=== PATIENT | male | born 1960 | race Caucasian/White ===

== ENCOUNTER 2019-04-14 14:02 | Observation (INO) ==
[~2019-04-14 14:02] MED LIST: KETAMINE HCL 50 MG/ML ML IV PRN; MIDAZOLAM 2 MG/2 ML VIAL IV SCH; PROPOFOL 200 MG/20 ML VIAL IV SCH
[2019-04-14] MEDS ORDERED: oxyCODONE HCL 5 MG TABLET PO PRN (14:30)
[2019-04-14] MEDS: 0.9 % SODIUM CHLORIDE 1,000 ML IV SCH (18:06)
[2019-04-14] MEDS: HYDROmorphone 2 MG/ML VIAL IV PRN ×3 (18:21→23:27)
[2019-04-14 20:05] LABS: Basophils # (Auto) 0 K/mcL (0.0-0.3); Basophils % (Auto) 0.3 % (0.0-2.0); Eosinophils # (Auto) 0.1 K/mcL (0.0-0.7); Eosinophils % (Auto) 1.3 % (0.0-7.0); Granulocytes % (Auto) 78.8 % (38.0-78.0); Hemoglobin 9.5 g/dL (13.5-16.5); Lymphocytes # (Auto) 1.2 K/mcL (1.5-4.8); Lymphocytes % (Auto) 10.9 % (15.5-49.0); Mean Cell Volume 71.4 fL (80.0-100.0); Mean Corpuscular HGB Conc 31.8 g/dL (31.0-36.0); Mean Platelet Volume 10.3 fL (7.4-10.4); Monocytes % (Auto) 8.7 % (1.0-12.0); Platelet Count 285 K/mcL (140-440); Red Cell Distribution Width 24.9 % (11.5-14.5); WBC 11.1 K/mcL (4.5-11.0)
[2019-04-14] MEDS: VANCOMYCIN 1,000 MG in 0.9 % SODIUM CHLORIDE 250 ML IV SCH (20:27)
[2019-04-14 21:42] LABS: INR 1.3 (0.9-1.1); Prothrombin Time 16.1 sec (11.9-14.5)
[2019-04-14] MEDS: PROMETHAZINE 25 MG/ML VIAL IV PRN (23:28)
[2019-04-14] MEDS: PIPERACILLIN SODIUM/TAZOBACTAM 3.375 GM in DEXTROSE 5% IN WATER 50 ML IV SCH (23:31)
[2019-04-15] MEDS: 0.9 % SODIUM CHLORIDE 10 ML SYRINGE IV SCH ×6 (00:07→22:07)
[2019-04-15 01:18] LABS: ALT/SGPT 61 U/l (0-40); AST/SGOT 40 U/l (0-37); Alkaline Phosphatase 66 U/L (39-117); Bilirubin,Direct 0.7 mg/dL (0.0-0.3); Bilirubin,Total 1.4 mg/dL (0.0-1.0); Blood Urea Nitrogen 12 mg/dl (6-20); Calcium 8.7 mg/dl (8.6-10.4); Carbon Dioxide 23 mmol/L (22-30); Chloride 102 mmol/L (96-108); Globulin 3.1 gm/dL (2.2-3.7); Glomerular Filtration Rate 98; Glucose 75 mg/dL (70-105); Lactate Dehydrogenase 188 U/L (94-250); Phosphorous 3.6 mg/dL (2.7-4.5); Triglycerides 89 mg/dl (<150); Uric Acid 2.3 mg/dL (2.5-8.0)
[2019-04-15] MEDS: HYDROmorphone 2 MG/ML VIAL IV PRN ×9 (02:03→22:07)
[2019-04-15] MEDS: ONDANSETRON 4 MG/2 ML VIAL IV PRN ×2 (02:04→22:57)
[2019-04-15] MEDS: PIPERACILLIN SODIUM/TAZOBACTAM 3.375 GM in DEXTROSE 5% IN WATER 50 ML IV SCH ×4 (03:11→17:50)
[2019-04-15] MEDS: 0.9 % SODIUM CHLORIDE 1,000 ML IV SCH ×2 (06:08→17:45)
--- NOTE | 2019-04-15 08:19 | XRay Report ---
HISTORY: Infected left-sided epidermal laceration FINDINGS: The lungs are clear. The heart, mediastinum, lucila and pleura are normal. No chest wall lesion is seen. There is no gas in the soft tissues or foreign body. Mild arthritis is present in the midthoracic spine and lower neck. IMPRESSION: Normal chest. Interpreted and Authenticated by: Oscar Kowalski 04/15/19
[2019-04-15] MEDS ORDERED: SCOPOLAMINE 1 PATCH PATCH TOPICAL PRN (09:05)
[2019-04-15] MEDS ORDERED: IPRATROPIUM/ALBUTEROL 3 ML AMPUL.NEB NEB PRN ×2 (09:05→11:09)
[2019-04-15] MEDS: VANCOMYCIN 1,000 MG in 0.9 % SODIUM CHLORIDE 250 ML IV SCH ×2 (09:11→22:06)
--- NOTE | 2019-04-15 09:54 | EGD Procedure Note ---
EGD Procedure Notes - Procedure Information Patient information: Note initiated : 04/15/19 at 9:49 am Service Date: 04.14.2019 Patient: Orville Johnson 58 y/o M admitted on for EGD/ J-Tube Placement. Pre-op diagnosis general: Nausea, vomiting. Weight loss. Post-Op Diagnosis general: Gastroparesis. Procedure: Esophogogastroduodenoscopy (EGD, post enteroscopy, PEGJ placed) Procedure Narrative: The procedure, alternatives and risks were discussed with the patient and the patient's questions were answered. Patient was advised of the risk of perforation. With endoscopist-administered intravenous sedation, the Olympus video colonoscope was introduced into the esophagus. Eosinophilic esophagitis appeared improved. The esophagus, stomach, and PEG site were examined sequentially. A guidewire was placed through the PEG and PEG tube was removed. Then the PEG-J was introduced into the stomach over the guidewire. The tip of the PEG-J was grasped with a resolution clip and advanced to the jejunum distal to the ligament of Treitz. The J tube was clipped to the jejunum and the colonoscope was withdrawn. The balloon was inflated with 7cc of water and pulled to the stomach wall. PEG-J was secured with an external bolster. The patient tolerated the procedure well. Assessment: Gastroparesis. Gastric port to passive drainage. Tube feeds per J tube.
--- NOTE | 2019-04-15 10:05 | General Surgery Consult Note ---
History of Present Illness Patient information: Note initiated : 04/15/19 at 10:02 am Service Date, if different from initiated Date: [] Patient: Orville Johnson 58 y/o M admitted on for EGD/ J-Tube Placement. Chief Complaint: [] Reason for consult: other (chest wall abscess) Requesting physician: Carlitos Celis History of present illness: 58-year-old male with history of developing abscess of left pectoral region for at least one month. He states that it started as a small pimple and has become progressively enlarged and painful. He states that it started draining about 2 days ago. Patient underwent J-tube placement on yesterday and it was noted that the area was severely inflamed. The patient had difficulty moving his left upper extremity. He was admitted overnight and was started on Zosyn and vancomycin pending culture results. He is counseled for excisional debridement and drainage of the large abscess.. Review of Systems - Constitutional malaise, night sweats, weakness - Respiratory pain with cough, no cough, no dyspnea, no dyspnea on exertion - Gastrointestinal abdominal pain, bloating, cramping, dyspepsia, dysphagia, heartburn, nausea, vomiting - Genitourinary no dysuria, no urinary frequency, no urinary hesitancy, no urinary incontinence - Musculoskeletal arthralgias, myalgias, stiffness - Integumentary other (abscess left chest wall) - Neurological no confusion, no dizziness, no headache(s), no numbness, no tingling, no tremor(s) - Psychiatric anxiety, no depression - Hematologic/Lymphatic no easy bleeding, no easy bruising, no lymphadenopathy - Allergic/Immunologic no tongue swelling, no throat swelling, no uticaria, no wheezing, no lip swelling Past History Past medical history: Diffuse esophagitis Gastroparesis Chronic anemia Past surgical history: Cholecystectomy Appendectomy Past family history: No significant family history Past social history: Never smoker Occasional alcohol intake Medications and Allergies Home Medications Medication Instructions Recorded Confirmed Type Omeprazole [PriLOSEC] 40 mg PO DAILY 02/17/18 04/14/19 History LORazepam [Ativan] 0.5 mg PO ONCE 04/14/19 04/14/19 History Allergies Allergy/AdvReac Type Severity Reaction Status Date / Time Penicillins Allergy Unknown Swelling Verified 04/15/19 04:02 of Lip/Tongue/Throat Exam Temp Pulse Resp BP Pulse Ox 97.9 F 91 H 20 114/74 95 04/15/19 06:52 04/15/19 04:00 04/15/19 06:52 04/15/19 06:52 04/15/19 06:52 - General physical appearance well developed, well nourished, no distress, moderate distress, moderate pain - Eyes PERRL, normal ocular movement - ENT normal pinna, normal nares, normal mucosa, no hearing loss, no congestion - Head Head exam IM: Present: atraumatic, normocephalic - Neck no masses, no bruits, trachea midline, no lymphadenopathy, no venous distension - Cardiovascular Cardiovascular exam IM: Present: normal rate and rhythm - Respiratory normal expansion, normal respiratory effort, clear to auscultation - Abdomen Abdomen: Present: soft, non tender, bowel sounds, surgical scars (PEG tube left upper quadrant) Hernia: Present: none - Genitourinary Present: normal penis with no external lesions - Integumentary Present: no rash, no growths, other (large abscess left upper chest involving the entire pre-pectoral region extending into the axilla and laterally) - Neurologic Present: normal coordination, normal sensation - Musculoskeletal Present: normal gait, normal posture - Psychiatric Present: oriented to time, oriented to person, oriented to place, speech is normal, memory intact Results - Labs 04/14/19 19:22 04/14/19 19:08 Abnormal lab results 04/14/19 04/14/19 04/14/19 Range/Units 19:08 19:08 19:22 WBC 11.1 H (4.5-11.0) K/mcL RBC 4.20 L (4.50-5.90) M/mcL Hgb 9.5 L (13.5-16.5) g/dL Hct 30.0 L (41.0-55.0) % MCV 71.4 L (80.0-100.0) fL MCH 22.7 L (26.0-34.0) pg RDW 24.9 H (11.5-14.5) % Gran % 78.8 H (38.0-78.0) % Lymph % (Auto) 10.9 L (15.5-49.0) % Gran # 8.7 H (1.8-8.0) K/mcL Lymph # (Auto) 1.2 L (1.5-4.8) K/mcL Kimball # (Auto) 1.0 H (0.1-0.9) K/mcL PT 16.1 H (11.9-14.5) sec INR 1.3 H (0.9-1.1) Uric Acid 2.3 L (2.5-8.0) mg/dL Total Bilirubin 1.4 H (0.0-1.0) mg/dL Direct Bilirubin 0.7 H (0.0-0.3) mg/dL AST 40 H (0-37) U/l ALT 61 H (0-40) U/l Albumin 3.0 L (3.2-5.2) gm/dL Diabetes panel 04/14/19 Range/Units 19:08 Sodium 137 (133-145) mmol/L Potassium 4.9 (3.3-5.1) mmol/L Chloride 102 (96-108) mmol/L Carbon Dioxide 23 (22-30) mmol/L BUN 12 (6-20) mg/dl Creatinine 0.8 (0.7-1.2) mg/dl Glucose 75 (70-105) mg/dL Calcium 8.7 (8.6-10.4) mg/dl AST 40 H (0-37) U/l ALT 61 H (0-40) U/l Alkaline Phosphatase 66 (39-117) U/L Total Protein 6.1 (5.9-8.4) gm/dL Albumin 3.0 L (3.2-5.2) gm/dL Triglycerides 89 (<150) mg/dl Calcium panel 04/14/19 Range/Units 19:08 Calcium 8.7 (8.6-10.4) mg/dl Phosphorus 3.6 (2.7-4.5) mg/dL Albumin 3.0 L (3.2-5.2) gm/dL Pituitary panel 04/14/19 Range/Units 19:08 Sodium 137 (133-145) mmol/L Potassium 4.9 (3.3-5.1) mmol/L Chloride 102 (96-108) mmol/L Carbon Dioxide 23 (22-30) mmol/L BUN 12 (6-20) mg/dl Creatinine 0.8 (0.7-1.2) mg/dl Glucose 75 (70-105) mg/dL Calcium 8.7 (8.6-10.4) mg/dl Adrenal panel 04/14/19 Range/Units 19:08 Sodium 137 (133-145) mmol/L Potassium 4.9 (3.3-5.1) mmol/L Chloride 102 (96-108) mmol/L Carbon Dioxide 23 (22-30) mmol/L BUN 12 (6-20) mg/dl Creatinine 0.8 (0.7-1.2) mg/dl Glucose 75 (70-105) mg/dL Calcium 8.7 (8.6-10.4) mg/dl Total Bilirubin 1.4 H (0.0-1.0) mg/dL AST 40 H (0-37) U/l ALT 61 H (0-40) U/l Alkaline Phosphatase 66 (39-117) U/L Total Protein 6.1 (5.9-8.4) gm/dL Albumin 3.0 L (3.2-5.2) gm/dL All other labs normal. Assessment and Plan (1) Chest wall abscess schedule for debridement under anesthesia meghana Status: Acute (2) Chronic esophagitis Status: Acute (3) Gastroparesis Status: Acute
[2019-04-15] MEDS ORDERED: fentaNYL 100 MCG/2 ML VIAL IV PRN (11:09)
[2019-04-15] MEDS ORDERED: ONDANSETRON 4 MG/2 ML VIAL IV PRN (11:09)
[2019-04-15] MEDS ORDERED: KETAMINE 100 MG/ML ML IV ONE (11:15)
[2019-04-15] MEDS ORDERED: GLYCOPYRROLATE 0.2 MG/ML VIAL IV ONE (11:15)
[2019-04-15] MEDS ORDERED: MIDAZOLAM 2 MG/2 ML VIAL IV ONE (11:15)
[2019-04-15] MEDS ORDERED: fentaNYL 100 MCG/2 ML VIAL IV ONE (11:15)
[2019-04-15] MEDS ORDERED: ONDANSETRON 4 MG/2 ML VIAL IV ONE (11:15)
[2019-04-15] MEDS ORDERED: LIDOCAINE HCL/PF 100 MG/5 ML SYRINGE IV ONE (11:15)
[2019-04-15] MEDS ORDERED: PROPOFOL 200 MG/20 ML VIAL IV ONE (11:15)
[2019-04-15] MEDS ORDERED: LACTATED RINGERS 1,000 ML IV SCH (11:15)
[2019-04-15] MEDS ORDERED: BACITRACIN 50,000 UNIT VIAL IR ONE (11:30)
--- NOTE | 2019-04-15 11:59 | Brief Operative Note ---
Date of procedure: 04/15/19 Pre-op diagnosis: ABSCESS OF LEFT PECTORAL AREA Post-op diagnosis: other (ABSCESS OF LEFT PECTORAL AREA) Procedure: DEBRIDEMENT AND DRAINAGE OF ABSCESS LEFT PECTORAL AREA Grafts/Implants: No (1/2 INCH JENELLE DRAIN) Anesthesia: GETA Findings: VERY LARGE ABSCESS OF ENTIRE LEFT PECTORAL AREA INVOLVING LEFT ANTERIOR CHEST WALL EXTENDING FROM MIDLLINE TO LATERAL PECTORAL BORDER AND FROM SUBCLAVICULAR SPACE TO LOWER MARGIN OF PECTORALIS MAJOR,NECROTIC SUBCUTANEOUS FAT AND ANTERIOR PECTORALIS FASCIA Complications: none Surgeon: Gabriel Fitzpatrick Estimated blood loss (cc): 50 Specimens Removed/Pathology: other (CULTURES OF DRAINAGE) Condition: stable Disposition: PACU
[2019-04-15] MEDS ORDERED: HYDROcodone/APAP 5/325MG TABLET PO PRN (12:02)
[2019-04-15] MEDS: MEPERIDINE 25 MG/ML SYRINGE IV PRN ×2 (12:16→12:21)
[2019-04-15] MEDS ORDERED: DIAZEPAM 5 MG/ML VIAL IV ONE (12:57)
[2019-04-15] MEDS ORDERED: DIAZEPAM 10 MG/2 ML SYRINGE IV ONE (13:00)
[2019-04-15] MEDS ORDERED: levETIRAcetam 500 MG TABLET PO SCH (13:00)
[2019-04-15] MEDS: levETIRAcetam 500 MG in 0.9 % SODIUM CHLORIDE 100 ML IV SCH (14:52)
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
[2019-04-15 16:28] LABS: Prealbumin 12.5 mg/dl (20-40)
[2019-04-15] MEDS ORDERED: DIAZEPAM 10 MG/2 ML SYRINGE IV PRN (19:00)
[2019-04-15] MEDS: PROMETHAZINE 25 MG/ML VIAL IV PRN (19:33)
[2019-04-15] MEDS ORDERED: LORazepam 1 MG TABLET PO PRN (21:00)
[2019-04-15] MEDS: CHLORHEXIDINE GLUCONATE 1 ML ORAL.SOL SWABMOUTH SCH (22:06)
[2019-04-16] MEDS ORDERED: KETOROLAC 15 MG/ML VIAL IV SCH (00:01)
[2019-04-16] MEDS ORDERED: HYDROmorphone 2 MG/ML VIAL ONE ×3 (00:20→05:18)
[2019-04-16] MEDS: levETIRAcetam 500 MG in 0.9 % SODIUM CHLORIDE 100 ML IV SCH ×3 (00:20→20:15)
[2019-04-16] MEDS: KETOROLAC 15 MG/ML VIAL IV SCH ×5 (00:25→23:45)
[2019-04-16] MEDS ORDERED: ACETAMINOPHEN 1,000 MG/100 ML BOTTLE IV ONE (00:26)
[2019-04-16] MEDS ORDERED: KETOROLAC 15 MG/ML VIAL ONE ×2 (00:26→05:59)
[2019-04-16] MEDS: PIPERACILLIN SODIUM/TAZOBACTAM 3.375 GM in DEXTROSE 5% IN WATER 50 ML IV SCH ×5 (00:46→23:45)
[2019-04-16] MEDS: HYDROcodone/APAP 10/325MG TABLET PO PRN ×4 (01:41→17:21)
[2019-04-16] MEDS ORDERED: HYDROcodone/APAP 10/325MG TABLET PO ONE ×2 (01:41→06:05)
[2019-04-16] MEDS: 0.9 % SODIUM CHLORIDE 1,000 ML IV SCH ×3 (04:40→23:17)
[2019-04-16] MEDS: HYDROmorphone 2 MG/ML VIAL IV PRN ×9 (05:22→23:11)
[2019-04-16] MEDS: PROMETHAZINE 25 MG/ML VIAL IV PRN (05:22)
[2019-04-16] MEDS: 0.9 % SODIUM CHLORIDE 10 ML SYRINGE IV SCH ×6 (05:31→22:31)
[2019-04-16 06:24] LABS: ALT/SGPT 46 U/l (0-40); AST/SGOT 39 U/l (0-37); Albumin 2.8 gm/dL (3.2-5.2); Alkaline Phosphatase 93 U/L (39-117); Basophils # (Auto) 0 K/mcL (0.0-0.3); Basophils % (Auto) 0.4 % (0.0-2.0); Bilirubin,Direct 0.6 mg/dL (0.0-0.3); Bilirubin,Total 1.1 mg/dL (0.0-1.0); Blood Urea Nitrogen 11 mg/dl (6-20); Calcium 7.9 mg/dl (8.6-10.4); Carbon Dioxide 25 mmol/L (22-30); Chloride 105 mmol/L (96-108); Eosinophils # (Auto) 0.3 K/mcL (0.0-0.7); Eosinophils % (Auto) 3.8 % (0.0-7.0); Globulin 2.8 gm/dL (2.2-3.7); Glomerular Filtration Rate 94; Glucose 78 mg/dL (70-105); Granulocytes % (Auto) 73.9 % (38.0-78.0); Hematocrit 26.6 % (41.0-55.0); Hemoglobin 8.3 g/dL (13.5-16.5); Lactate Dehydrogenase 261 U/L (94-250); Lymphocytes # (Auto) 1.1 K/mcL (1.5-4.8); Lymphocytes % (Auto) 15.1 % (15.5-49.0); Mean Cell Volume 73.8 fL (80.0-100.0); Mean Corpuscular HGB Conc 31.2 g/dL (31.0-36.0); Mean Platelet Volume 9.9 fL (7.4-10.4); Monocytes # (Auto) 0.5 K/mcL (0.1-0.9); Monocytes % (Auto) 6.8 % (1.0-12.0); Phosphorous 3.2 mg/dL (2.7-4.5); Platelet Count 297 K/mcL (140-440); RBC 3.61 M/mcL (4.50-5.90); Red Cell Distribution Width 24.8 % (11.5-14.5); Triglycerides 101 mg/dl (<150); Uric Acid 2.1 mg/dL (2.5-8.0); WBC 7.2 K/mcL (4.5-11.0)
[2019-04-16] MEDS ORDERED: PANTOPRAZOLE 40 MG TABLET PO SCH (07:30)
[2019-04-16] MEDS: ACETAMINOPHEN 1,000 MG/100 ML BOTTLE IV PRN ×3 (07:41→23:11)
[2019-04-16] MEDS: CHLORHEXIDINE GLUCONATE 1 ML ORAL.SOL SWABMOUTH SCH ×2 (08:38→20:15)
[2019-04-16] MEDS: VANCOMYCIN 1,000 MG in 0.9 % SODIUM CHLORIDE 250 ML IV SCH (09:29)
[2019-04-16] MEDS: VANCOMYCIN 1,500 MG in 0.9 % SODIUM CHLORIDE 500 ML IV SCH ×2 (10:32→21:24)
--- NOTE | 2019-04-16 13:09 | General Surgery Progress Note ---
Subjective Patient reports: feels better, still having pain, afebrile Narrative: Note initiated : 04/16/19 at 1:07 pm Service Date, if different from initiated Date: [] Patient: Orville Johnson 58 y/o M admitted on for EGD/ J-Tube Placement. Chief Complaint: [patient is doing better. He is mentally alert. He has some episodes of myotonic activity but he remains fully alert during these episodes and they're very short-lived. No clinical evidence of seizure disorder at this time. His chest wall is significantly improved. The cellulitis is much better. He only has bloody drainage at this time. Dressing change was carried out. His white blood count is 7.2 and his hemoglobin is 8.3. Gram stain shows gram- positive cocci in chains clusters and pairs.] Objective Temp Pulse Resp BP Pulse Ox 98 F 70 20 113/69 97 04/16/19 12:51 04/16/19 12:51 04/16/19 12:51 04/16/19 12:51 04/16/19 12:51 - Additional Data Intake & Output - Last 24 hours: Intake & Output 04/14/19 04/15/19 04/16/19 04/17/19 05:59 05:59 05:59 05:59 Intake Total 300 4127 1043 Output Total 300 750 475 Balance 0 3377 568 Weight 181 lb 181 lb - General physical appearance moderate distress, moderate pain - Eyes PERRL, normal ocular movement - ENT normal pinna, normal nares, normal mucosa, no hearing loss, no congestion - Neck no masses, no bruits, trachea midline, no lymphadenopathy, no venous distension - Cardiovascular Cardiovascular exam: Present: normal rate and rhythm, RRR, +S1, +S2. Absent: JVD, tachycardia - Abdomen non tender, bowel sounds (present), surgical scars (PEJ tube in left upper quadrant), masses (none) - Integumentary other ( left pectoral region is significantly improved with less erythema and induration; drainage is serosanguineous) - Neurologic normal coordination, normal sensation - Psychiatric oriented to time, oriented to person, oriented to place, speech is normal, memory intact - Labs 04/16/19 04:00 04/16/19 04:00 Diabetes panel 04/16/19 Range/Units 04:00 Sodium 140 (133-145) mmol/L Potassium 4.7 (3.3-5.1) mmol/L Chloride 105 (96-108) mmol/L Carbon Dioxide 25 (22-30) mmol/L BUN 11 (6-20) mg/dl Creatinine 0.9 (0.7-1.2) mg/dl Glucose 78 (70-105) mg/dL Calcium 7.9 L (8.6-10.4) mg/dl AST 39 H (0-37) U/l ALT 46 H (0-40) U/l Alkaline Phosphatase 93 (39-117) U/L Total Protein 5.6 L (5.9-8.4) gm/dL Albumin 2.8 L (3.2-5.2) gm/dL Triglycerides 101 (<150) mg/dl Calcium panel 04/16/19 Range/Units 04:00 Calcium 7.9 L (8.6-10.4) mg/dl Phosphorus 3.2 (2.7-4.5) mg/dL Albumin 2.8 L (3.2-5.2) gm/dL Pituitary panel 04/16/19 Range/Units 04:00 Sodium 140 (133-145) mmol/L Potassium 4.7 (3.3-5.1) mmol/L Chloride 105 (96-108) mmol/L Carbon Dioxide 25 (22-30) mmol/L BUN 11 (6-20) mg/dl Creatinine 0.9 (0.7-1.2) mg/dl Glucose 78 (70-105) mg/dL Calcium 7.9 L (8.6-10.4) mg/dl Adrenal panel 04/16/19 Range/Units 04:00 Sodium 140 (133-145) mmol/L Potassium 4.7 (3.3-5.1) mmol/L Chloride 105 (96-108) mmol/L Carbon Dioxide 25 (22-30) mmol/L BUN 11 (6-20) mg/dl Creatinine 0.9 (0.7-1.2) mg/dl Glucose 78 (70-105) mg/dL Calcium 7.9 L (8.6-10.4) mg/dl Total Bilirubin 1.1 H (0.0-1.0) mg/dL AST 39 H (0-37) U/l ALT 46 H (0-40) U/l Alkaline Phosphatase 93 (39-117) U/L Total Protein 5.6 L (5.9-8.4) gm/dL Albumin 2.8 L (3.2-5.2) gm/dL Assessment and Plan (1) Chest wall abscess Status: Acute Assessment and plan: Continue present antibiotics pending sensitivity results Current Visit: Yes (2) Chronic esophagitis Status: Acute Assessment and plan: Continue tube feeding and advance as tolerated Current Visit: Yes (3) Gastroparesis Status: Acute Current Visit: Yes - Time Spent With Patient Total time spent is greater than 50% in coordination of care (as documented) at patient's floor/unit and/or counseling patient:
[2019-04-16] MEDS: oxyCODONE HCL 5 MG TABLET PO PRN (21:24)
[2019-04-17] MEDS: HYDROmorphone 2 MG/ML VIAL IV PRN ×10 (03:06→23:26)
[2019-04-17] MEDS: oxyCODONE HCL 5 MG TABLET PO PRN ×5 (03:07→22:58)
[2019-04-17] MEDS: 0.9 % SODIUM CHLORIDE 1,000 ML IV SCH ×3 (03:34→22:57)
[2019-04-17] MEDS: ACETAMINOPHEN 1,000 MG/100 ML BOTTLE IV PRN ×3 (04:42→17:32)
[2019-04-17] MEDS: 0.9 % SODIUM CHLORIDE 10 ML SYRINGE IV SCH ×6 (04:58→21:46)
[2019-04-17 05:31] LABS: Basophils # (Auto) 0 K/mcL (0.0-0.3); Basophils % (Auto) 0.4 % (0.0-2.0); Eosinophils # (Auto) 0.4 K/mcL (0.0-0.7); Eosinophils % (Auto) 7.6 % (0.0-7.0); Granulocytes % (Auto) 67.3 % (38.0-78.0); Hematocrit 26.9 % (41.0-55.0); Hemoglobin 8.4 g/dL (13.5-16.5); Lymphocytes # (Auto) 0.8 K/mcL (1.5-4.8); Lymphocytes % (Auto) 17.4 % (15.5-49.0); Mean Corpuscular HGB Conc 31.1 g/dL (31.0-36.0); Mean Platelet Volume 9.9 fL (7.4-10.4); Monocytes # (Auto) 0.3 K/mcL (0.1-0.9); Monocytes % (Auto) 7.3 % (1.0-12.0); Platelet Count 269 K/mcL (140-440); RBC 3.63 M/mcL (4.50-5.90); Red Cell Distribution Width 24.3 % (11.5-14.5); WBC 4.7 K/mcL (4.5-11.0)
[2019-04-17 05:51] LABS: ALT/SGPT 37 U/l (0-40); AST/SGOT 26 U/l (0-37); Albumin 2.8 gm/dL (3.2-5.2); Alkaline Phosphatase 80 U/L (39-117); Bilirubin,Direct 0.5 mg/dL (0.0-0.3); Bilirubin,Total 0.8 mg/dL (0.0-1.0); Blood Urea Nitrogen 9 mg/dl (6-20); Calcium 7.5 mg/dl (8.6-10.4); Carbon Dioxide 28 mmol/L (22-30); Chloride 106 mmol/L (96-108); Globulin 2.7 gm/dL (2.2-3.7); Glomerular Filtration Rate 94; Glucose 94 mg/dL (70-105); Lactate Dehydrogenase 173 U/L (94-250); Phosphorous 2.7 mg/dL (2.7-4.5); Triglycerides 117 mg/dl (<150)
[2019-04-17] MEDS: KETOROLAC 15 MG/ML VIAL IV SCH ×3 (05:58→17:34)
[2019-04-17] MEDS: PIPERACILLIN SODIUM/TAZOBACTAM 3.375 GM in DEXTROSE 5% IN WATER 50 ML IV SCH ×4 (05:59→23:25)
[2019-04-17] MEDS: ESOMEPRAZOLE 40 MG VIAL IV SCH (07:22)
[2019-04-17] MEDS: levETIRAcetam 500 MG in 0.9 % SODIUM CHLORIDE 100 ML IV SCH ×2 (08:38→21:24)
[2019-04-17] MEDS: CHLORHEXIDINE GLUCONATE 1 ML ORAL.SOL SWABMOUTH SCH ×3 (08:39→21:33)
[2019-04-17] MEDS: VANCOMYCIN 1,500 MG in 0.9 % SODIUM CHLORIDE 500 ML IV SCH (09:32)
--- NOTE | 2019-04-17 15:55 | General Surgery Progress Note ---
Subjective Patient reports: feels better, pain is less, flatus, bowel movement, afebrile Narrative: Note initiated : 04/17/19 at 3:54 pm Service Date, if different from initiated Date: [] Patient: Orville Johnson 58 y/o M admitted on for EGD/ J-Tube Placement. Chief Complaint: [Patient is doing well. He has less pain. There is significant reduction in inflammation and induration. He only has serosanguineous drainage this time. White blood count 4.7, hemoglobin 8.4, hematocrit 26.9, potassium 4.3, BUN 9, creatinine 0 0.9. Cultures are growing Eikenella species. The vancomycin is therefore discontinued. Patient can probably be discharged on amoxicillin. We will make that disposition tomorrow.] Objective Temp Pulse Resp BP Pulse Ox 99.2 F H 81 20 117/74 93 04/17/19 11:22 04/17/19 07:18 04/17/19 11:22 04/17/19 11:22 04/17/19 11:22 - Additional Data Intake & Output - Last 24 hours: Intake & Output 04/15/19 04/16/19 04/17/19 04/18/19 05:59 05:59 05:59 05:59 Intake Total 300 4127 4152 1514 Output Total 444 724 4007 1600 Balance 0 3377 2127 -86 Weight 181 lb 181 lb 183 lb 11.2 oz - General physical appearance well developed, well nourished, no distress - Eyes PERRL, normal ocular movement - ENT normal pinna, normal nares, normal mucosa, no hearing loss, no congestion - Neck no masses, no bruits, trachea midline, no lymphadenopathy, no venous distension - Respiratory normal expansion, normal respiratory effort, clear to auscultation - Cardiovascular Cardiovascular exam: Present: normal rate and rhythm, RRR, rubs, +S1, +S2. Absent: JVD - Abdomen non tender, bowel sounds (present), surgical scars (PEG tube is functioning adequately), masses (none) - Integumentary other (cellulitis and abscess of the chest wall is improving significantly) - Neurologic normal coordination, normal sensation - Musculoskeletal normal gait, normal posture - Psychiatric oriented to time, oriented to person, oriented to place, speech is normal, memory intact - Labs 04/17/19 04:25 04/17/19 04:25 Diabetes panel 04/17/19 Range/Units 04:25 Sodium 144 (133-145) mmol/L Potassium 4.3 (3.3-5.1) mmol/L Chloride 106 (96-108) mmol/L Carbon Dioxide 28 (22-30) mmol/L BUN 9 (6-20) mg/dl Creatinine 0.9 (0.7-1.2) mg/dl Glucose 94 (70-105) mg/dL Calcium 7.5 L (8.6-10.4) mg/dl AST 26 (0-37) U/l ALT 37 (0-40) U/l Alkaline Phosphatase 80 (39-117) U/L Total Protein 5.5 L (5.9-8.4) gm/dL Albumin 2.8 L (3.2-5.2) gm/dL Triglycerides 117 (<150) mg/dl Calcium panel 04/17/19 Range/Units 04:25 Calcium 7.5 L (8.6-10.4) mg/dl Phosphorus 2.7 (2.7-4.5) mg/dL Albumin 2.8 L (3.2-5.2) gm/dL Pituitary panel 04/17/19 Range/Units 04:25 Sodium 144 (133-145) mmol/L Potassium 4.3 (3.3-5.1) mmol/L Chloride 106 (96-108) mmol/L Carbon Dioxide 28 (22-30) mmol/L BUN 9 (6-20) mg/dl Creatinine 0.9 (0.7-1.2) mg/dl Glucose 94 (70-105) mg/dL Calcium 7.5 L (8.6-10.4) mg/dl Adrenal panel 04/17/19 Range/Units 04:25 Sodium 144 (133-145) mmol/L Potassium 4.3 (3.3-5.1) mmol/L Chloride 106 (96-108) mmol/L Carbon Dioxide 28 (22-30) mmol/L BUN 9 (6-20) mg/dl Creatinine 0.9 (0.7-1.2) mg/dl Glucose 94 (70-105) mg/dL Calcium 7.5 L (8.6-10.4) mg/dl Total Bilirubin 0.8 (0.0-1.0) mg/dL AST 26 (0-37) U/l ALT 37 (0-40) U/l Alkaline Phosphatase 80 (39-117) U/L Total Protein 5.5 L (5.9-8.4) gm/dL Albumin 2.8 L (3.2-5.2) gm/dL Assessment and Plan (1) Chest wall abscess Status: Acute Assessment and plan: Continue present antibiotics pending sensitivity Discontinue vancomycin. Continue Zosyn but make arrangements for discharge home with Augmentin or amoxicillin (2) Chronic esophagitis Status: Acute Assessment and plan: Continue tube feeding and advance as tolerated (3) Gastroparesis Status: Acute - Time Spent With Patient Total time spent is greater than 50% in coordination of care (as documented) at patient's floor/unit and/or counseling patient:
[2019-04-17] MEDS: ONDANSETRON 4 MG/2 ML VIAL IV PRN (16:00)
[2019-04-18] MEDS: ACETAMINOPHEN 1,000 MG/100 ML BOTTLE IV PRN (00:17)
[2019-04-18] MEDS: HYDROmorphone 2 MG/ML VIAL IV PRN (02:27)
[2019-04-18] MEDS: oxyCODONE HCL 5 MG TABLET PO PRN (03:22)
[2019-04-18] MEDS: PIPERACILLIN SODIUM/TAZOBACTAM 3.375 GM in DEXTROSE 5% IN WATER 50 ML IV SCH ×2 (06:03→11:40)
[2019-04-18] MEDS: 0.9 % SODIUM CHLORIDE 10 ML SYRINGE IV SCH ×3 (06:03→13:29)
[2019-04-18 07:01] LABS: Basophils # (Auto) 0 K/mcL (0.0-0.3); Basophils % (Auto) 0.5 % (0.0-2.0); Eosinophils # (Auto) 0.4 K/mcL (0.0-0.7); Eosinophils % (Auto) 6.7 % (0.0-7.0); Granulocytes % (Auto) 71.1 % (38.0-78.0); Hematocrit 27.8 % (41.0-55.0); Hemoglobin 8.5 g/dL (13.5-16.5); Lymphocytes # (Auto) 0.8 K/mcL (1.5-4.8); Lymphocytes % (Auto) 14.8 % (15.5-49.0); Mean Corpuscular HGB Conc 30.6 g/dL (31.0-36.0); Mean Platelet Volume 9.9 fL (7.4-10.4); Monocytes # (Auto) 0.4 K/mcL (0.1-0.9); Monocytes % (Auto) 6.9 % (1.0-12.0); Platelet Count 338 K/mcL (140-440); RBC 3.75 M/mcL (4.50-5.90); Red Cell Distribution Width 26.7 % (11.5-14.5); WBC 5.3 K/mcL (4.5-11.0)
[2019-04-18 08:09] LABS: ALT/SGPT 28 U/l (0-40); AST/SGOT 19 U/l (0-37); Albumin 2.8 gm/dL (3.2-5.2); Albumin/Globulin Ratio 1.1 (1.0-2.3); Alkaline Phosphatase 67 U/L (39-117); Bilirubin,Direct 0.3 mg/dL (0.0-0.3); Bilirubin,Total 0.5 mg/dL (0.0-1.0); Blood Urea Nitrogen 7 mg/dl (6-20); Calcium 7.6 mg/dl (8.6-10.4); Carbon Dioxide 26 mmol/L (22-30); Chloride 110 mmol/L (96-108); Globulin 2.6 gm/dL (2.2-3.7); Glomerular Filtration Rate 104; Glucose 101 mg/dL (70-105); Lactate Dehydrogenase 184 U/L (94-250); Triglycerides 120 mg/dl (<150); Uric Acid 1.7 mg/dL (2.5-8.0)
[2019-04-18] MEDS: CHLORHEXIDINE GLUCONATE 1 ML ORAL.SOL SWABMOUTH SCH (08:46)
[2019-04-18] MEDS: ESOMEPRAZOLE 40 MG VIAL IV SCH (08:46)
[2019-04-18] MEDS: levETIRAcetam 500 MG in 0.9 % SODIUM CHLORIDE 100 ML IV SCH (08:47)
[2019-04-18] MEDS: ONDANSETRON 4 MG/2 ML VIAL IV PRN (11:31)
--- NOTE | 2019-04-18 15:36 | Discharge Summary ---
Providers - Providers Patient information: Note initiated : 04/18/19 at 3:31 pm Service Date, if different from initiated Date: [] Patient: Orville Johnson 58 y/o M admitted on 04/16/19 for EGD/ J-Tube Placement. Chief Complaint: [] Date of admission: 04/15/19 Discharge date: 04/18/19 Attending physician: Gabriel Fitzpatrick Hospitalization Hospital Course: 58-year-old male with history of developing abscess of the left pectoral region for at least a month. He states that it started as a small pimple became progressively enlarged. He gives a history of the draining about 2 days prior to admission. The patient was an outpatient having a J-tube placement and it was noted that the area was severely inflamed. He was admitted overnight and started on Zosyn and vancomycin. I was consulted and the patient was counseled for excisional debridement and drainage of the large abscess. He was taken to the operating room on 15 April where a very large abscess of the entire left pectoral region was drained and debrided. She had extensive loculations in the subcutaneous plane that were dissected in the large cavity which covered the entire aspect of his left chest extending from sternum to lateral chest wall. A large 1/2 inch Leanna drain was placed and this was drained through a counterincision in the midaxillary line. He was treated with antibiotics until his cultures returned. Final cultures grew out Eikenella species. His white count is normal and he is stable for discharge home on Augmentin. I will follow him up in the office in 1 week. He will have his J-tube follow-up by the gastroenterology. Discharge diagnosis: major abscess subcutaneous left pectoral region Secondary discharge diagnosis: Chronic esophagitis Gastroparesis Chronic anemia Neurologic disorder etiology poorly defined Reason for admission: abscess left chest wall Procedures: Incision and debridement and drainage of abscess left chest wall Pertinent studies/significant findings: None Complications: None Exam Temp Pulse Resp BP Pulse Ox 97.9 F 79 16 148/77 94 04/18/19 15:22 04/18/19 15:22 04/18/19 15:22 04/18/19 15:22 04/18/19 15:22 - General physical appearance well developed, well nourished, no distress, other (mild pain) - Eyes PERRL, normal ocular movement - ENT normal pinna, normal nares, normal mucosa, no hearing loss, no congestion - Head Head exam IM: Present: atraumatic, normocephalic - Neck no masses, no bruits, trachea midline, no lymphadenopathy, no venous distension - Cardiovascular Cardiovascular exam IM: Present: normal rate and rhythm - Respiratory normal expansion, normal respiratory effort, clear to auscultation - Abdomen Abdomen: Present: soft, non tender, bowel sounds Hernia: Present: none - Genitourinary Present: normal penis with no external lesions - Integumentary Present: no rash, no growths, no abnormal pigmentation, other (draining inflamed left pectoral region with 2 puncture sites) - Neurologic Present: normal coordination, normal sensation - Musculoskeletal Present: normal gait, normal posture - Psychiatric Present: oriented to time, oriented to person, oriented to place, speech is normal, memory intact Discharge Plan - Patient/Caregiver Discharge Instructions Activity: increase activity as tolerated Diet: Full Liquid (orders are) Additional Instructions: Osmolite 1.5 60 cc/h continuous for total of 1440 cc per 24 hours Change dressing on chest wall left side every 1-3 days as needed Prescriptions: Amoxicillin/Potassium Clav [Augmentin] 875 mg PO Q12H #30 tab Transmission Status: Pending to [email or web address] - Follow up Plan Disposition: Home, Self-Care Prognosis: Good Rehab Potential: Good I certify that the patient requires SNF services.: No Overall status at discharge: patient is not back to baseline Pending Studies Resuscitation Status Full Code Diet NPO Diet (NOW) Start ThuApr 15 1519 Chlorhexidine Gluconate (Peridex) 15 ml SWABMOUTH BID [facility] Last Admin: 04/18/19 08:46 Dose: 15 ml Documented by: [email or web address] Admin: 04/17/19 21:33 Dose: 15 ml Documented by: Admin: 04/17/19 08:39 Dose: 15 ml Documented by: Admin: 04/16/19 20:15 Dose: 15 ml Documented by: Admin: 04/16/19 08:38 Dose: 15 ml Documented by: Admin: 04/15/19 22:06 Dose: 15 ml Documented by: DORIS Diazepam (Valium) 5 mg IV Q6HP PRN PRN Reason: MUSCLE SPASMS Last Admin: 04/15/19 22:53 Dose: 5 mg Documented by: DORIS Esomeprazole Magnesium (Nexium) 40 mg IV ACB SALLIE Last Admin: 04/18/19 08:46 Dose: 40 mg Documented by: [email or web address] Admin: 04/17/19 07:22 Dose: 40 mg Documented by: JASON Hydromorphone HCl (Dilaudid) 2 mg IV Q2HP PRN; Protocol PRN Reason: PAIN LEVEL > 6 Last Admin: 04/18/19 02:27 Dose: 2 mg Documented by: Admin: 04/17/19 23:26 Dose: 2 mg Documented by: Admin: 04/17/19 21:25 Dose: 2 mg Documented by: Admin: 04/17/19 19:24 Dose: 2 mg Documented by: Admin: 04/17/19 17:36 Dose: 2 mg Documented by: Admin: 04/17/19 15:25 Dose: 2 mg Documented by: Admin: 04/17/19 13:11 Dose: 2 mg Documented by: Admin: 04/17/19 10:49 Dose: 2 mg Documented by: Admin: 04/17/19 08:36 Dose: 2 mg Documented by: Admin: 04/17/19 05:59 Dose: 2 mg Documented by: Admin: 04/17/19 03:06 Dose: 2 mg Documented by: Admin: 04/16/19 23:11 Dose: 2 mg Documented by: Admin: 04/16/19 20:59 Dose: 2 mg Documented by: Admin: 04/16/19 18:52 Dose: 2 mg Documented by: Admin: 04/16/19 16:49 Dose: 2 mg Documented by: Admin: 04/16/19 14:39 Dose: 2 mg Documented by: Admin: 04/16/19 12:29 Dose: 2 mg Documented by: Admin: 04/16/19 10:01 Dose: 2 mg Documented by: Admin: 04/16/19 07:51 Dose: 2 mg Documented by: Admin: 04/16/19 05:22 Dose: 2 mg Documented by: DORIS Sodium Chloride (Sodium Chloride 0.9%) 1,000 mls @ 75 mls/hr IV .[id number] SALLIE Last Admin: 04/17/19 22:57 Dose: 75 mls/hr Documented by: Infusion: 04/17/19 16:54 Dose: 75 mls/hr Documented by: Admin: 04/17/19 11:43 Dose: Not Given Documented by: Admin: 04/17/19 03:34 Dose: 75 mls/hr Documented by: Admin: 04/16/19 23:17 Dose: Not Given Documented by: Admin: 04/16/19 18:37 Dose: Not Given Documented by: Infusion: 04/16/19 18:00 Dose: 75 mls/hr Documented by: Admin: 04/16/19 04:40 Dose: 75 mls/hr Documented by: Infusion: 04/15/19 19:28 Dose: 75 mls/hr Documented by: Admin: 04/15/19 17:45 Dose: Not Given Documented by: Admin: 04/15/19 06:08 Dose: 75 mls/hr Documented by: Infusion: 04/15/19 06:08 Dose: 75 mls/hr Documented by: Admin: 04/14/19 18:06 Dose: 75 mls/hr Documented by: [email or web address] Piperacillin Sod/Tazobactam (Sod 3.375 gm/ Dextrose) 50 mls @ 100 mls/hr IV Q6H [facility]; Protocol Last Admin: 04/18/19 11:40 Dose: 100 mls/hr Documented by: [email or web address] Infusion: 04/18/19 06:33 Dose: 100 mls/hr Documented by: Admin: 04/18/19 06:03 Dose: 100 mls/hr Documented by: Infusion: 04/17/19 23:55 Dose: 100 mls/hr Documented by: Admin: 04/17/19 23:25 Dose: 100 mls/hr Documented by: Infusion: 04/17/19 18:35 Dose: 100 mls/hr Documented by: Admin: 04/17/19 18:05 Dose: 100 mls/hr Documented by: Infusion: 04/17/19 14:00 Dose: 0 mls/hr Documented by: [email or web address] Admin: 04/17/19 13:24 Dose: 100 mls/hr Documented by: [email or web address] Infusion: 04/17/19 06:29 Dose: 100 mls/hr Documented by: [email or web address] Admin: 04/17/19 05:59 Dose: 100 mls/hr Documented by: Infusion: 04/17/19 00:40 Dose: 0 mls/hr Documented by: Admin: 04/16/19 23:45 Dose: 100 mls/hr Documented by: Infusion: 04/16/19 21:26 Dose: 0 mls/hr Documented by: Admin: 04/16/19 17:53 Dose: 100 mls/hr Documented by: Infusion: 04/16/19 13:15 Dose: 0 mls/hr Documented by: Admin: 04/16/19 12:39 Dose: 100 mls/hr Documented by: Infusion: 04/16/19 06:00 Dose: 0 mls/hr Documented by: Admin: 04/16/19 05:23 Dose: 100 mls/hr Documented by: Infusion: 04/16/19 01:16 Dose: 100 mls/hr Documented by: Admin: 04/16/19 00:46 Dose: 100 mls/hr Documented by: Infusion: 04/15/19 18:20 Dose: 100 mls/hr Documented by: Admin: 04/15/19 17:50 Dose: 100 mls/hr Documented by: Infusion: 04/15/19 12:19 Dose: 0 mls/hr Documented by: Admin: 04/15/19 12:01 Dose: 100 mls/hr Documented by: Infusion: 04/15/19 06:30 Dose: 100 mls/hr Documented by: Admin: 04/15/19 06:00 Dose: 100 mls/hr Documented by: Admin: 04/15/19 03:11 Dose: Not Given Documented by: Infusion: 04/15/19 00:01 Dose: 100 mls/hr Documented by: Admin: 04/14/19 23:31 Dose: 100 mls/hr Documented by: SEBAS Levetiracetam 500 mg/ Sodium (Chloride) 105 mls @ 200 mls/hr IV Q12 SALLIE Last Infusion: 04/18/19 09:10 Dose: 0 mls/hr Documented by: Admin: 04/18/19 08:47 Dose: 200 mls/hr Documented by: Infusion: 04/17/19 21:56 Dose: 200 mls/hr Documented by: Admin: 04/17/19 21:24 Dose: 200 mls/hr Documented by: Infusion: 04/17/19 09:38 Dose: 0 mls/hr Documented by: Admin: 04/17/19 08:38 Dose: 200 mls/hr Documented by: Infusion: 04/16/19 21:26 Dose: 0 mls/hr Documented by: Admin: 04/16/19 20:15 Dose: 200 mls/hr Documented by: Infusion: 04/16/19 10:33 Dose: 0 mls/hr Documented by: Admin: 04/16/19 08:31 Dose: 200 mls/hr Documented by: Infusion: 04/16/19 00:52 Dose: 200 mls/hr Documented by: Admin: 04/16/19 00:20 Dose: 200 mls/hr Documented by: Infusion: 04/15/19 15:25 Dose: 0 mls/hr Documented by: Admin: 04/15/19 14:52 Dose: 200 mls/hr Documented by: RAMEZ Acetaminophen (Ofirmev) 1,000 mg in 100 mls @ 200 mls/hr IV Q6HP PRN; Protocol PRN Reason: PAIN/FEVER > 101 Last Admin: 04/18/19 00:17 Dose: 200 mls/hr Documented by: Infusion: 04/17/19 18:05 Dose: 0 mls/hr Documented by: Admin: 04/17/19 17:32 Dose: 200 mls/hr Documented by: Infusion: 04/17/19 12:35 Dose: 0 mls/hr Documented by: [email or web address] Admin: 04/17/19 12:05 Dose: 200 mls/hr Documented by: Infusion: 04/17/19 05:59 Dose: 0 mls/hr Documented by: Admin: 04/17/19 04:42 Dose: 200 mls/hr Documented by: Infusion: 04/16/19 23:49 Dose: 0 mls/hr Documented by: Admin: 04/16/19 23:11 Dose: 200 mls/hr Documented by: Infusion: 04/16/19 15:15 Dose: 0 mls/hr Documented by: Admin: 04/16/19 14:37 Dose: 200 mls/hr Documented by: Infusion: 04/16/19 08:11 Dose: 0 mls/hr Documented by: Admin: 04/16/19 07:41 Dose: 200 mls/hr Documented by: JASON Lorazepam (Ativan) 1 mg PO HSP PRN PRN Reason: Insomnia Last Admin: 04/16/19 23:45 Dose: 1 mg Documented by: INDIRA Ondansetron HCl (Zofran) 4 mg IV Q4-6HP PRN PRN Reason: Nausea And Vomiting Last Admin: 04/18/19 11:31 Dose: 4 mg Documented by: [email or web address] Admin: 04/17/19 16:00 Dose: 4 mg Documented by: Admin: 04/15/19 22:57 Dose: 4 mg Documented by: Admin: 04/15/19 02:04 Dose: 4 mg Documented by: SEBAS Oxycodone HCl (Roxicodone) 10 mg PO Q4HP PRN PRN Reason: PAIN LEVEL 3-6 Last Admin: 04/18/19 03:22 Dose: 10 mg Documented by: Admin: 04/17/19 22:58 Dose: 10 mg Documented by: Admin: 04/17/19 18:07 Dose: 10 mg Documented by: Admin: 04/17/19 12:23 Dose: 10 mg Documented by: Admin: 04/17/19 07:22 Dose: 10 mg Documented by: Admin: 04/17/19 03:07 Dose: 10 mg Documented by: Admin: 04/16/19 21:24 Dose: 10 mg Documented by: INDIRA Promethazine HCl (Phenergan) 12.5 mg IV Q4-6HP PRN PRN Reason: Nausea And Vomiting Last Admin: 04/16/19 05:22 Dose: 12.5 mg Documented by: Admin: 04/15/19 19:33 Dose: 12.5 mg Documented by: Admin: 04/14/19 23:28 Dose: 12.5 mg Documented by: SEBAS Sodium Chloride (Saline Flush) 10 ml IV Q8 [facility] Last Admin: 04/18/19 13:29 Dose: Not Given Documented by: [email or web address] Admin: 04/18/19 06:03 Dose: Not Given Documented by: Admin: 04/17/19 21:46 Dose: Not Given Documented by: Admin: 04/17/19 14:58 Dose: Not Given Documented by: [facility] Admin: 04/17/19 04:58 Dose: Not Given Documented by: Admin: 04/16/19 22:31 Dose: Not Given Documented by: Admin: 04/16/19 14:24 Dose: Not Given Documented by: [email or web address] Admin: 04/16/19 05:31 Dose: Not Given Documented by: Admin: 04/15/19 22:07 Dose: Not Given Documented by: Admin: 04/15/19 14:17 Dose: Not Given Documented by: [facility] Admin: 04/15/19 06:02 Dose: Not Given Documented by: Admin: 04/15/19 00:07 Dose: Not Given Documented by: SEBAS Sodium Chloride (Saline Flush) 10 ml IV Q8 [facility] Last Admin: 04/18/19 06:03 Dose: Not Given Documented by: Admin: 04/17/19 21:25 Dose: Not Given Documented by: Admin: 04/17/19 14:58 Dose: Not Given Documented by: [facility] Admin: 04/17/19 04:58 Dose: Not Given Documented by: Admin: 04/16/19 22:31 Dose: Not Given Documented by: Admin: 04/16/19 14:24 Dose: Not Given Documented by: [email or web address] Admin: 04/16/19 05:31 Dose: Not Given Documented by: Admin: 04/15/19 22:07 Dose: Not Given Documented by: Admin: 04/15/19 14:17 Dose: Not Given Documented by: F Shift Summary 04/18/19 04:40 Shift Summary by Nicanor Oconnor Patient is alert and oriented times four. Up with assist to the bathroom. slept most of the night. Pain has improved significantly, pain has been between 5&6. Medicated pain with dilaudid*4, oxycodone*2 and Offirmev*1. Slept for about 6hrs this shift. had some shallow drainage on dressing to the left chest. Dressing changed once this shift. On tube feeding. 1500 total output of gastric content drained from Mcdonald catheter. Peg tube flushed before and after medication. IV on the left forearm infusing NS at 75mls/hr. Stable vital signs. Pleasant and cooperative. able to make needs known. Initialized on 04/18/19 04:40 - END OF NOTE
--- NOTE | 2019-04-18 21:09 | Antibiotic Stewardship Consult ---
Antibiotic Stewardship Consult Reason for consult: Penicillin allergy Allergy History: Allergies Allergy/AdvReac Type Severity Reaction Status Date / Time Penicillins Allergy Severe Swelling Verified 04/18/19 07:39 of Lip/Tongue/Throat Microbiology History: Microbiology 04/15/19 11:30 Gram Stain - Final Abscess Gram Stain - Final Anaerobic Culture - Preliminary 04/15/19 11:30 Gram Stain - Final Chest - Left Abscess Culture - Preliminary Eikenella species 04/14/19 21:57 Gram Stain - Final Chest - Left Wound Culture - Preliminary Eikenella species 04/14/19 20:28 Gram Stain - Final Chest - Left Anaerobic Culture - Preliminary Narrative: Pt tolerated IV Piperacillin-tazobactam without any problems during his hospital stay. Therefore penicillin allergy doesnot exist, and was removed from the chart.
--- NOTE | 2019-04-20 15:58 | Operative Note ---
DATE OF OPERATION: 04/16/2019 PROCEDURE DATE: 04/15/2019 PREOPERATIVE DIAGNOSIS: Abscess, left pectoral area. POSTOPERATIVE DIAGNOSIS: Abscess, left pectoral area. PROCEDURE: Debridement and drainage of abscess, left pectoral area. SURGEON: Gabriel Fitzpatrick M.D. FINDINGS: Very large abscess of the entire left pectoral area. I then extended across the entire left anterior chest wall with extension from the sternum in the midline to the lateral pectoral border and from the subclavicular space to the lower margin of the pectoralis muscle. There was necrotic subcutaneous fat in the anterior pectoralis fascia that was bluntly debrided. DESCRIPTION OF PROCEDURE: Under general anesthesia, the patient's chest wall was prepped and draped in a sterile field. Aspiration of the large abscess revealed mirta pus. This was sent for culture and sensitivity. Next, the site of early drainage was further debrided until I could stick my finger into the cavity. There were multiple loculated areas. I was able to break these loculations up with finger fractionation. A Yankauer suction was then placed in the abscess cavity and a huge volume of pus was suctioned. Next, a counter incision was made over the lateral pectoral border in the anterior axillary line. This was large enough to place my middle finger. With placement of my middle finger in the subcutaneous plane, I was able to break up the loculations of necrotic fat. I then irrigated the entire cavity through and through using about 2000 mL of saline mixed with four vials of bacitracin solution. There was brisk bleeding and about 50 to 75 mL of blood probably was suctioned. Once this was done, I placed a sponge through the more medial border opening and roughly debrided the pectoralis fascia. I approached it this way, so I did not have to make an extensive incision across his entire chest. The area was then irrigated once more with saline and bacitracin solution. A 1/2-inch [place] drain was chosen and was placed from the medial incision across the chest wall to the lateral incision. It was then sutured anterior to the nipple with 2-0 nylon. This was done to affect adequate drainage of blood and purulent material from the abscess cavity. The drain sites were covered with a 4 x 4 gauze and ABD pad. A large tape was then placed. The patient tolerated the procedure well. He was awakened, transferred to a bed, and taken to the postanesthetic care unit in stable, satisfactory condition. LCS:[email or web address] antonio Job ID: [id number] Doc ID: [id number] Gabriel Fitzpatrick M.D.
== END 2019-04-18 16:56 | disposition home or self-care (01) ==
LOC: SSSU 14:02 → MEDSUR 14:02
PROVIDERS: ADMIT Family Medicine Adult Medicine; ATTEND Family Medicine Adult Medicine